=== PATIENT | male | born 1955 | race African-American/Black ===

== ENCOUNTER 2017-04-30 17:17 | Inpatient (IN) | payer OTHER ==
[~2017-04-30] VITALS: Ht 175.3 cm; Wt 67.1 kg
--- NOTE | ~2017-04-30 | CR2 ---
[facility] A Service of [facility] RADIOLOGY TEXT RESULTS PATIENT: ALEENA DAVE LOCATION: C3A : 55 UNIT #: [id number] AGE: [address]: Jm Rojas MD SEX: M ORDER DR: [id number] [facility]. [place], [place] [address] [id number] MR#: [id number] Acc #: [id number] NAME: ALEENA DAVE : 1955 SEX: M STUDY DATE/TIME: 04/30/2017 19:18 UNIT: C3A PCU ROOM: [facility] STUDY DESCRIPTION: CR Abdomen Acute Series Attending Physician: Nicolasa Werner M.D. Ordering Physician: Tan Hawkins M.D. Primary Care Physician: Primary Care Physician No MEDICAL IMAGING REPORT This report is preliminary unless electronic signature is present EXAM Acute abdominal series, 04/30/2017 INDICATIONS 61-year-old male with vomiting, abdominal pain and nausea for 2 weeks. Last bowel movement was 2 weeks ago. TECHNIQUE Frontal chest and upright and supine views of the abdomen were performed. Comparison chest x-ray 04/17/2010. FINDINGS Cardiac silhouette is within normal limits, there is atherosclerotic change of the aorta. The vascularity is normal. There is no effusion or dense consolidation. There is calcified granuloma in the lower lobe on the left. No pneumothorax. Upright view of the abdomen demonstrates no free air. Moderate stool burden in the right colon. No dilated air-filled loops of large or small bowel. No distinct mass effect. Probable vascular calcifications to the left of midline. There are degenerative changes in the lumbar spine. IMPRESSION 1. Negative frontal chest for active disease. Calcified granulomatous changes. 2. No free air. 3. Moderate stool burden in the colon. Otherwise, nonspecific but nonobstructed bowel gas pattern. Dictated by... Rajeev Roman M.D. [facility] A Service [facility] RADIOLOGY TEXT RESULTS PATIENT: ALEENA DAVE LOCATION: A 329 : 55 UNIT #: [id number] AGE: [address]: Jm Rojas MD SEX: M ORDER DR: THIS IS AN ELECTRONICALLY VERIFIED REPORT Rajeev Roman M.D. at 05/01/2017 11:27 AM Alexander TD: 05/01/2017 02:13 JOB #: [id number] MEDICAL IMAGING REPORT Page 1 of 1 COPY
--- NOTE | ~2017-04-30 | CR63 ---
[facility] A Service of [facility] RADIOLOGY TEXT RESULTS PATIENT: ALEENA DAVE LOCATION: [facility] 329 : 55 UNIT #: [id number] AGE: [address]: Jm Rojas MD SEX: M ORDER DR: [id number] [facility] [address] [facility]. [place], [place] [address] [id number] I MR#: [id number] Acc #: [id number] NAME: ALEENA DAVE : 1955 SEX: M STUDY DATE/TIME: 05/02/2017 7:39 UNIT: [facility] PCU ROOM: [facility] STUDY DESCRIPTION: CR Chest 2 View Attending Physician: Jm Rojas M.D. Ordering Physician: Sandra Ring A.P.R.N. Primary Care Physician: No Primary Care Physician MEDICAL IMAGING REPORT This report is preliminary unless electronic signature is present EXAM Chest x-ray, two-views HISTORY Lung nodule, body aches, body aches, short of air activity, nausea and vomiting. Symptoms for 2 weeks. No trauma. COMMENT Two view of the chest reviewed. COMPARISON STUDIES 04/17/2010. FINDINGS There is what appears to be a calcified nodule left lower lobe unchanged. The heart size is normal. There is calcification of the thoracic aorta. No acute infiltrate acute congestive failure, pleural effusion or pneumothorax. Mild endplate spondylosis and probably mild hyperinflation. IMPRESSION No active disease is seen in the chest. I believe there is a calcified nodule in the left lower lobe unchanged from previous. Mild hyperinflation likely, and there is vascular calcification of the thoracic aorta. Dictated by... Juana Martinez M.D. THIS IS AN ELECTRONICALLY VERIFIED REPORT Juana Martinez M.D. at 05/03/2017 9:27 AM ARIE/camille [facility] A Service of [facility] RADIOLOGY TEXT RESULTS PATIENT: ALEENA DAVE LOCATION: [facility] 329 : 55 UNIT #: [id number] AGE: [address]: Jm Rojas MD SEX: M ORDER DR: TD: 05/03/2017 01:48 JOB #: [id number] MEDICAL IMAGING REPORT Page 1 of 1 COPY
--- NOTE | ~2017-04-30 | A ---
[facility] Nutrition Therapy DATE: 05/02/17 Patient: ALEENA DAVE Physician: RAISSA Address: [address] [place] [address] Room/Bed: [address] [place] [address], Zip: [place] [address] Admit Date: 04/30/17 Date of : 55 Height: 5 9 Weight: 148 67.2 NUTRITIONAL ASSESSMENT: REASON: CONSULT RE: DM EDUCATION PT IS 61 Y.O. MALE ADMITTED FOR N/V RD PROVIDED WRITTEN AND VERBAL CC + TYPE 2 DIET EDUCATION. PT REPORTS CONSUMING ONE MEAL DAILY AT HOME AND DOES NOT FOLLOW ANY SPECIFIC DIET. RD ENCOURAGED PT TO ADD ONE EXTRA MEAL TO HIS DAILY ROUTINE. RD EMPHASIZED IMPORTANCE AND RATIONALE FOR CONSUMING 3 MEALS DAILY (MAINTAINING A CONSISTENT MEAL PATTERN). PT DEMONSTRATED UNDERSTANDING OF THE TOPIC. PT REPORTED NO DIET QUESTIONS AT THIS TIME. RD TO REMAIN AVAILABLE. RECOMMENDATIONS: 1. ENCOURAGE COMPLIANCE OF CURRENT DIET ORDER-CC 2. RE-CONSULT RD IF FURTHER DIET EDUCATION REQUESTED RD WILL F/U PER PROTOCOL Respectfully, MADISON HARTMANN MS, RD, LD Food and Nutritional Services [facility] cc: client file
--- NOTE | ~2017-04-30 | EKG ---
PATIENT: ALEENA DAVE UNIT #: [id number] Ventricular Rate: 84 BPM Atrial Rate: 84 BPM P-R Interval: 130 ms QRS Duration: 82 ms Q-T Interval: 348 ms QTC Calculation(Bezet): 411 ms P Temple: 73 degrees Calculated R Temple: 89 degrees Calculated T Temple: 77 degrees Diagnosis Line: Normal sinus rhythm Diagnosis Line: Normal ECG Diagnosis Line: No previous ECGs available Diagnosis Line: Confirmed by MINNIE MONTANEZ MD ([id number]) on 04/30/2017 Diagnosis Line: 7:29:45 PM INTERPRETING MD: TARIK HENRY
--- NOTE | ~2017-04-30 | HP ---
Unit #: [id number] #: [id number] Patient: ALEENA DAVE [id number] [address] [place], [place] [address] [id number] MR#: [id number] NAME: ALEENA DAVE ROOM: Age: 61 Sex: M Admission Date: 04/30/2017 : 1955 Attending Physician: Tan Hawkins M.D. HISTORY AND PHYSICAL CHIEF COMPLAINT Metabolic acidosis either due to starvation ketosis versus diabetic ketoacidosis. HISTORY OF PRESENT ILLNESS This very pleasant 61-year-old male with AODM which currently is not being treated and alcohol abuse is admitted for nausea, malaise, and suprapubic discomfort. The patient states that he was well until one and a half weeks prior to admission when he developed anorexia and nausea. He has only been drinking water due to the nausea and maybe some sensation of acid reflux. He has become increasingly constipated. He notes suprapubic pain after urinating. He notes some palpitations with the above, along with polyuria and polydipsia. He was diagnosed with diabetes mellitus in 2007 but stopped taking his medicines. He presented to this emergency department this evening mildly tachycardic with a heart rate of 114. Labs show an anion gap metabolic acidosis with positive BHOB and ketones in the urine. The patient is also dehydrated. He was bolused with a liter of saline and given a rally pack due to daily alcohol use, Zofran, and six units of IV regular insulin. His current glucose is 305. His abdominal examination is benign. Acute abdominal series shows moderate stool burden. PAST MEDICAL HISTORY 1. Adult-onset diabetes mellitus diagnosed in 2007. 2. Hyperlipidemia. 3. History of a lung nodule. 4. Appendectomy. 5. Bilateral hernia repair. 6. Infected groin lymph node. ALLERGIES No known drug allergies. HOME MEDICATIONS None. FAMILY HISTORY Diabetes mellitus, hypertension, and hyperlipidemia. SOCIAL HISTORY Patient lives alone. He drinks about six 16-ounce beers on a daily basis. He smokes one and a half packs per day of tobacco and denies illicit drug use. Unit #: [id number] #: [id number] Patient: ALEENA DAVE REVIEW OF SYSTEMS Notable for nausea, constipation, suprapubic discomfort, diabetes, tobacco abuse, alcohol abuse, above-mentioned surgeries, malaise, and some palpitations. All other systems were reviewed and otherwise negative. PHYSICAL EXAMINATION GENERAL: A very pleasant 61-year-old male who currently is in no acute distress. VITAL SIGNS: Temperature 98.7, pulse 114, respirations 16, blood pressure 121/83, and O2 saturation is 99% on room air. HEENT: Eyes PERRLA. Extraocular muscles are intact. Pharynx is benign. NECK: Supple without adenopathy or thyromegaly. CHEST: Clear. CARDIAC: Normal S1 and S2 without S3, S4, or murmur. ABDOMEN: Bowel sounds are present. No hepatosplenomegaly, tenderness, or masses. EXTREMITIES: Without clubbing, cyanosis, or edema. Pedal pulses are present. No ulcers on the feet. LYMPHATICS: No cervical, supraclavicular, or axillary lymphadenopathy. NEUROLOGIC: Patient is awake, alert, and oriented. His cranial nerves are intact. He has equal strength throughout. DIAGNOSTIC STUDIES LABORATORY: Hematocrit is 51.2 with normal count and platelet count. SMA-12 with glucose of 305, BUN 33, creatinine 1.4, sodium 128, chloride 92, CO2 is 17 with an anion gap of 19, calcium 11.1 but his protein is 8.7, and bilirubin is 2.2, mostly indirect. Beta-hydroxybutyrate 6. Alcohol level is less than 5. Venous ABG with pH of 7.31, PCO2 of 45, PO2 of 23, and O2 saturation 36%. Again, this was a venous draw. Cardiac markers are negative. Urine toxicology screen is negative. Urinalysis with positive protein and positive glucose without significant white or red cells. IMAGING: Acute abdominal series: Negative chest x-ray. Old granulomatous disease noted. Moderate stool burden. CARDIOLOGY: EKG normal sinus rhythm, rate 84. ASSESSMENT 1. Starvation ketosis versus diabetic ketoacidosis. 2. Dehydration secondary to persistent nausea. 3. Constipation. 4. Uncontrolled adult-onset diabetes mellitus, not taking medicines. 5. Suprapubic discomfort which may be related to constipation. I am unsure at this juncture. 6. Alcohol abuse. 7. Tobacco abuse. PLANS 1. IV fluids, sliding scale insulin, low-dose Levemir. Will add dextrose IV fluids when Accu-Chek is less than 200. 2. Benzodiazepines and vitamins. 3. Zofran, Reglan, and proton pump inhibitor. 4. Check postvoid bladder scan. 5. Dulcolax suppository. 6. NicoDerm patch. 7. Hemoglobin A1c and check magnesium level, along with labs in a few Unit #: [id number] #: [id number] Patient: ALEENA DAVE. 8. If not improving, will work up further with CT scans, consultants, etc., as needed. 9. DVT prophylaxis. 1. Dictated by Nicolasa Werner M.D. AML/am TD: 04/30/2017 21:58 JOB #: [id number] HISTORY AND PHYSICAL Page 1 of 1 X Nicolasa Werner MD HISTORY AND PHYSICAL
--- NOTE | ~2017-04-30 | DS ---
Unit #: [id number] #: [id number] Patient: ALEENA DAVE [id number] [facility]. [place], [place] [address] [id number] I MR#: [id number] NAME: ALEENA DAVE ROOM: 329 Age: 61 Sex: M Admission Date: 04/30/2017 : 1955 Discharge Date: 05/03/2017 Attending Physician: Jm Rojas M.D. Primary Care Physician: No Primary Care Physician DISCHARGE SUMMARY ADDENDUM The patient's discharge yesterday was put on hold secondary to blood sugars very high. They were running 400-500 mg/dl. The patient was given Levemir insulin and started on NovoLog 8 units each meal, plus supplemented with medium dose sliding scale. The patient's blood sugars are significantly improved. This morning blood sugar was 99. The patient is being discharged home, to be followed up with her primary care physician in one to two weeks. Prescriptions have been written. Medications are the same as dictated on yesterday's dictation. Dictated by... Claudia Barr/vladimir TD: 05/04/2017 10:37 JOB #: [id number] DISCHARGE SUMMARY Page 1 of 1 X Samuel Mart MD DISCHARGE SUMMARY
--- NOTE | ~2017-04-30 | DS ---
Unit #: [id number] #: [id number] Patient: ALEENA DAVE [id number] [address] [place], [place] [address] [id number] I MR#: [id number] NAME: ALEENA DAVE ROOM: 329 Age: 61 Sex: M Admission Date: 04/30/2017 : 1955 Discharge Date: 05/03/2017 Attending Physician: Jm Rojas M.D. Primary Care Physician: No Primary Care Physician DISCHARGE SUMMARY DISCHARGE DIAGNOSES 1. Type 2 diabetes mellitus with hyperglycemia, uncontrolled. 2. Metabolic acidosis, questionable, due to the alcohol abuse. 3. History of heavy alcohol abuse. 4. History of lung nodule. 5. Hyponatremia. 6. Dehydration. 7. Acute kidney injury. 8. Poor compliance. HOSPITAL COURSE This is a 61-year-old -[place] male who has been admitted, presented to the emergency room for not feeling well, reporting with generalized weakness, nausea, loss of appetite. Reports that he has not been eating for the last two to three days. Also, he has not been taking any of his diabetic medications. In the emergency room, evaluation showed very high blood sugars over 300 mg/dl with metabolic acidosis and positive ketones with creatinine of 1.4 and A1c of 12.9. He was treated with the IV hydration. His renal function has significantly improved. He was started also on insulin Levemir 10 units daily with supplemental sliding scale as his blood sugar has significantly improved and he was also started on alcohol withdrawal protocol, treated with Librium. At this point, patient has no symptoms of any alcohol withdrawal. Also, received p.r.n. thiamine. CONDITION Patient is clinically stable at this time to be discharged home. DISCHARGE MEDICATIONS 1. Glipizide 2.5 mg twice daily. 2. Thiamine 100 mg daily. 3. Multivitamin. 4. CRISELDA inhibitor. 5. Lisinopril 5 mg daily. 6. Atorvastatin 20 mg daily. Discussed with patient for the alcohol cessation and tobacco cessation. Follow with primary care physician in one week. DISPOSITION To home. Unit #: [id number] #: [id number] Patient: ALEENA DAVE Dictated by... Claudia Barr/julius TD: 05/04/2017 10:20 JOB #: [id number] DISCHARGE SUMMARY Page 1 of 1 X Samuel Mart MD DISCHARGE SUMMARY
[~2017-04-30 17:17] MED LIST: ASPIRIN PO; CLONIDINE HCL0.1 MG PO; DICLOFENAC PO; GLUCOTROL XL PO; HCTZ PO; LISINOPRIL PO; PEN-VEE K PO
[2017-04-30 17:48] LABS: BASOPHIL# 0.1 X10e3 (0-0.3); BASOPHIL% 0.8 % (0-2.5); EOSINOPHIL% 0.5 % (0.0-7.0); HEMATOCRIT 51.2 % (38.0-50.0); HEMOGLOBIN 17.3 gm/dL (13.0-16.0); LYMPHOCYTE# 2.6 X10e3 (1.0-3.5); LYMPHOCYTE% 30.6 % (17.0-45.0); MEAN CELL VOLUME 90.4 FL (83-96); MEAN CORPUSCULAR HEMOGLOBIN 30.6 PG (28-34); MEAN CORPUSCULAR HGB CONC 33.8 g/dL (30-36); MEAN PLATELET VOLUME 8.6 FL (6.5-11.5); MONOCYTE# 0.7 X10e3 (0-1.0); MONOCYTE% 8.8 % (3.0-12.0); NEUTROPHIL% 59.3 % (40-75); PLATELET COUNT 295 X10e3 (140-420); RED BLOOD COUNT 5.67 X10e (3.90-5.60); RED CELL DISTRIBUTION WIDTH 13.7 % (11.0-15.5); WHITE BLOOD COUNT 8.5 X10e3 (4.0-10.5)
[2017-04-30 18:03] LABS: DIFF IND NO
[2017-04-30 18:14] LABS: ALBUMIN SERUM 4.7 g/dL (3.5-5.0); BILIRUBIN, DIRECT 0.1 mg/dL (0.0-0.2); BILIRUBIN,INDIRECT 2.1 mg/dL (0.0-0.9); BILIRUBIN,TOTAL 2.2 mg/dL (0.2-2.0); BUN/CREATININE RATIO 23.57; CALCIUM SERUM 11.1 mg/dL (8.4-10.2); CREATININE SERUM 1.4 mg/dL (0.6-1.4); GLOM FILT RATE Estimated 62.4 mL/min (>60); POTASSIUM 4.5 mmol/L (3.5-5.1); PROTEIN TOTAL SERUM 8.7 g/dL (6.0-8.3)
[2017-04-30 19:13] LABS: ARTERIAL BLOOD GAS CARBOXY HB 2.4 %sat (0.0-9.0); ARTERIAL BLOOD GAS HCO3 22.9 mmol/L; ARTERIAL BLOOD GAS MET HB 0.6 %sat (0.0-2.0); ARTERIAL BLOOD GAS PCO2 45.3 mmHg (35.0-45.0); ARTERIAL BLOOD GAS pH 7.312 (7.350-7.450)
[2017-04-30 19:14] LABS: ARTERIAL DRAW? NO
[2017-04-30 19:18] LABS: BETA HYDROXYBUTYRATE 5.98 MMOL/L (0.02-0.27)
[2017-04-30 19:19] LABS: ALCOHOL BLOOD <5 mg/dL (0)
[2017-04-30 19:46] LABS: POC - CKMB 2.6 ng/mL (0.0-7.9); POC - TROPONIN <0.05 ng/mL (<=0.05)
[2017-04-30 19:55] LABS: URINE SOURCE CLEAN CATCH
[2017-04-30 20:07] LABS: URINE APPEARANCE CLOUDY; URINE BILIRUBIN NEG (NEG); URINE BLOOD TRACE (NEG); URINE COLOR YELLOW; URINE GLUCOSE >1000 MG/DL (NEG); URINE KETONE 2+ (NEG); URINE LEUKOCYTE ESTERASE NEG (NEG); URINE NITRATE NEG (NEG); URINE PROTEIN 3+ (NEG); URINE SPECIFIC GRAVITY 1.029 (1.003-1.035); URINE UROBILINOGEN 0.2 MG/DL (NEG)
[2017-04-30 20:10] LABS: URINE BACTERIA AUWI NEG (NEGATIVE); URINE SQUAMOUS EPITHELIAL CELL OCC /[HPF]
[2017-04-30 20:11] LABS: CULTURE INDICATED? NO
[2017-04-30 20:16] LABS: AMPHETAMINE NEG (NEG); BARBITURATES NEG (NEG); BENZODIAZEPINES NEG (NEG); COCAINE NEG (NEG); MARIJUANA NEG (NEG); OPIATES NEG (NEG); TRICYCLIC ANTIDEPRESSANTS NEG (NEG); U METHADONE NEG (NEG)
[2017-05-01 02:37] LABS: HEMATOCRIT 46.9 % (38.0-50.0); HEMOGLOBIN 15.9 gm/dL (13.0-16.0); MEAN CELL VOLUME 89.4 FL (83-96); MEAN CORPUSCULAR HEMOGLOBIN 30.3 PG (28-34); MEAN CORPUSCULAR HGB CONC 33.9 g/dL (30-36); MEAN PLATELET VOLUME 8.1 FL (6.5-11.5); RED BLOOD COUNT 5.24 X10e (3.90-5.60); RED CELL DISTRIBUTION WIDTH 13.7 % (11.0-15.5)
[2017-05-01 03:09] LABS: ALBUMIN SERUM 4.1 g/dL (3.5-5.0); BILIRUBIN,TOTAL 1.6 mg/dL (0.2-2.0); BUN/CREATININE RATIO 37.14; CALCIUM SERUM 9.9 mg/dL (8.4-10.2); CREATININE SERUM 0.7 mg/dL (0.6-1.4); GLOM FILT RATE Estimated 118.1 mL/min (>60); MAGNESIUM 1.8 mg/dL (1.6-3.0); POTASSIUM 4.1 mmol/L (3.5-5.1); PROTEIN TOTAL SERUM 7.5 g/dL (6.0-8.3)
[2017-05-02 05:31] LABS: BUN/CREATININE RATIO 25.55; CALCIUM SERUM 9.6 mg/dL (8.4-10.2); CREATININE SERUM 0.9 mg/dL (0.6-1.4); GLOM FILT RATE Estimated 106.5 mL/min (>60); MAGNESIUM 2.1 mg/dL (1.6-3.0); POTASSIUM 3.8 mmol/L (3.5-5.1)
[2017-05-03] MEDS ORDERED: MULTI-DAY PLUS1 EAC1 PO (12:05)
[2017-05-03] MEDS ORDERED: GLIPIZIDE ER2.5 MG PO (12:06)
[2017-05-03] MEDS ORDERED: LISINOPRIL5 MG PO (12:07)
[2017-05-03] MEDS ORDERED: B-1100 MG PO (12:07)
[2017-05-03] MEDS ORDERED: LIPITOR20 MG PO (12:08)
[2017-05-03] MEDS ORDERED: LEVEMIR100 UNITS/ SUBQ (12:09)
== END 2017-05-03 13:33 | disposition home or self-care (01) | DRG 638 ==
LOC: CED 17:17 → CEDOF 21:30 → CED 22:03 → C3A PCU 22:41 → CEDOF 22:41 → C3A PCU 05-01 09:25
PROVIDERS: Emergency Medicine; Internal Medicine; Nurse Practitioner
DX: E11.65 Type 2 diabetes mellitus with hyperglycemia (principal); E87.2 Acidosis; N17.9 Acute kidney failure, unspecified; E87.1 Hypo-osmolality and hyponatremia; F10.10 Alcohol abuse, uncomplicated; E86.0 Dehydration; Z91.19 Patient's noncompliance with other medical treatment and regimen; R00.0 Tachycardia, unspecified; Z83.3 Family history of diabetes mellitus; Z82.49 Family history of ischemic heart disease and other diseases of the circulatory system; K59.00 Constipation, unspecified; F17.210 Nicotine dependence, cigarettes, uncomplicated; Z71.41 Alcohol abuse counseling and surveillance of alcoholic; Z71.6 Tobacco abuse counseling
CPT/HCPCS: 36415; 71020; 74022; 80048; 80053; 80076; 80307; 81003; 82010; 82553; 82803; 82947; 83036; 83690; 83735; 84484; 85025; 85027; 93005; 96361; 96374; 96375; 99285; C9113; G0480; J1815; J2405; J3411